=== PATIENT | female | born 1995 | race Caucasian/White ===

== ENCOUNTER 2025-03-23 14:01 | Emergency (ER) | payer OTHER ==
[~2025-03-23] VITALS: Ht 160 cm; Wt 100.2 kg
[2025-03-23] MEDS ORDERED: ACETAMINOPHEN ES 500 MG TABLET ONE (14:57)
[2025-03-23] MEDS ORDERED: KETOROLAC TROMETHAMINE 15 MG/ML VIAL ONE (14:57)
[2025-03-23] MEDS: ACETAMINOPHEN ES 500 MG TABLET PO ONE (15:04)
[2025-03-23] MEDS: KETOROLAC TROMETHAMINE 15 MG/ML VIAL IM ONE (15:04)
[2025-03-23 15:34] LABS: PLATELET COUNT (AUTO) 364 K/uL (150-450); RED BLOOD CELL COUNT(AUTO) 4.59 MIL/uL (4.0-5.2); RED CELL DISTRIBUTION WIDTH 12.3 % (11.5-15.0); WHITE BLOOD COUNT (AUTO) 13.1 K/uL (4.3-11.0)
[2025-03-23 15:43] LABS: CALCIUM, SERUM 9.3 mg/dL (8.5-10.1); CREATININE 0.5 mg/dL (0.6-1.3); SODIUM SERUM 136.0 mmol/L (136-145); UREA NITROGEN, BLOOD 10.0 mg/dL (7-18)
[2025-03-23 15:45] LABS: APPEARANCE,URINE CLEAR (CLEAR); BLOOD, URINE NEGATIVE Ery/uL (NEGATIVE); LEUKOCYTE ESTERASE ,URINE TRACE (NEGATIVE); NITRITE, URINE NEGATIVE (NEGATIVE); UGLUCOSE NEGATIVE (NEGATIVE)
[2025-03-23 16:02] LABS: PREGNANCY TEST URINE QUAL NEGATIVE (NEGATIVE)
[2025-03-23 16:17] LABS: ADD URINE CULTURE YES
[2025-03-23 16:18] LABS: SQUAMOUS EPITHELIAL CELL,UR 21-50 /HPF (None Seen)
[2025-03-23] MEDS ORDERED: CEPH-570 PO (16:44)
[2025-03-23 16:51] VITALS: BP 144/80; TEMP 98.5; O2SAT 100
== END 2025-03-23 16:53 | disposition home or self-care (01) ==
LOC: ER 14:01
DX: N39.0 Urinary tract infection, site not specified (principal); G89.29 Other chronic pain; M54.9 Dorsalgia, unspecified; Z60.2 Problems related to living alone
CPT/HCPCS: 99283; 96372; 85025; 80048; 81001; 36415; 84703 ×2; J1885; 87086-TC

== ENCOUNTER 2025-06-06 23:21 | Emergency (ER) | payer OTHER ==
[~2025-06-06] VITALS: Ht 162.6 cm; Wt 83.9 kg
[~2025-06-06 23:21] MED LIST: CEPH-570 PO
[2025-06-07] MEDS ORDERED: KETOROLAC TROMETHAMINE INJ 30 MG/ML VIAL ONE (02:07)
[2025-06-07 02:16] LABS: PREGNANCY TEST URINE QUAL NEGATIVE (NEGATIVE)
[2025-06-07] MEDS ORDERED: LIDOCAINE 5% (PATCH) 1 EA PATCH TP ONE (02:21)
[2025-06-07] MEDS ORDERED: ACETAMINOPHEN 325 MG TABLET ONE (02:21)
[2025-06-07] MEDS ORDERED: dexaMETHasone SOD PHOSPHATE 1 ML ONE (02:26)
[2025-06-07] MEDS: dexaMETHasone SOD PHOSPHATE 4 MG/ML VIAL IM ONE (02:43)
[2025-06-07] MEDS: LIDOCAINE 5% (PATCH) 1 EA PATCH TP ONE (02:43)
[2025-06-07] MEDS: KETOROLAC TROMETHAMINE INJ 30 MG/ML VIAL IM ONE (02:43)
[2025-06-07] MEDS: ACETAMINOPHEN 325 MG TABLET PO ONE (02:43)
[2025-06-07] MEDS ORDERED: METHOCARBAMOL (500MG) 500 MG TABLET ONE (03:25)
[2025-06-07] MEDS: METHOCARBAMOL (750MG) 750 MG TABLET PO ONE (03:29)
[2025-06-07 04:01] VITALS: BP 126/77; TEMP 98; O2SAT 98
== END 2025-06-07 04:01 | disposition home or self-care (01) ==
LOC: ER 23:24
DX: M54.50 Low back pain, unspecified (principal); G89.29 Other chronic pain; M79.605 Pain in left leg; M25.562 Pain in left knee; Z87.39 Personal history of other diseases of the musculoskeletal system and connective tissue; Z60.2 Problems related to living alone
CPT/HCPCS: 81025; 84703; 96372; 99284; J1100; J1885

== ENCOUNTER 2025-06-08 20:28 | Emergency (ER) | payer MEDICAID, OTHER ==
[~2025-06-08] VITALS: Ht 160 cm; Wt 98.4 kg
[2025-06-08 20:51] VITALS: BP 145/79; TEMP 98.3
[2025-06-08] MEDS ORDERED: KETOROLAC TROMETHAMINE INJ 30 MG/ML VIAL ONE (21:22)
[2025-06-08] MEDS: KETOROLAC TROMETHAMINE INJ 30 MG/ML VIAL IM ONE (21:23)
[2025-06-08 21:39] VITALS: O2SAT 99
== END 2025-06-08 21:39 | disposition home or self-care (01) ==
LOC: ER 20:31
DX: G89.29 Other chronic pain (principal); M54.50 Low back pain, unspecified; Z60.2 Problems related to living alone
CPT/HCPCS: 99283; 96372; J1885

== ENCOUNTER 2025-06-13 20:02 | Emergency (ER) | payer OTHER ==
[~2025-06-13] VITALS: Ht 160 cm; Wt 98.4 kg
[2025-06-13 20:41] VITALS: BP 134/88; TEMP 98; O2SAT 98
[2025-06-13] MEDS: KETOROLAC TROMETHAMINE 15 MG/ML VIAL IM ONE (21:00)
[2025-06-13] MEDS ORDERED: LIDO30AD10 TP (22:02)
[2025-06-13] MEDS ORDERED: KETOROLAC TROMETHAMINE 15 MG/ML VIAL ONE (22:03)
[2025-06-13 22:13] LABS: APPEARANCE,URINE CLEAR (CLEAR); BLOOD, URINE 3+ Ery/uL (NEGATIVE); LEUKOCYTE ESTERASE ,URINE NEGATIVE (NEGATIVE); NITRITE, URINE NEGATIVE (NEGATIVE); UGLUCOSE NEGATIVE (NEGATIVE)
[2025-06-13 22:27] LABS: ADD URINE CULTURE YES
== END 2025-06-13 22:11 | disposition home or self-care (01) ==
LOC: ER 20:07
DX: M54.50 Low back pain, unspecified (principal); G89.29 Other chronic pain; Z79.899 Other long term (current) drug therapy
CPT/HCPCS: 99283; 96372; 87086; 81001; J1885

== ENCOUNTER 2025-06-16 21:04 | Emergency (ER) | payer OTHER ==
[~2025-06-16] VITALS: Ht 165.1 cm; Wt 76.7 kg
[~2025-06-16 21:04] MED LIST changes: +LIDO30AD10 TP
[2025-06-16] MEDS ORDERED: KETO10TA2 PO (23:02)
[2025-06-16] MEDS ORDERED: KETOROLAC TROMETHAMINE INJ 30 MG/ML VIAL ONE (23:29)
[2025-06-16] MEDS: KETOROLAC TROMETHAMINE INJ 30 MG/ML VIAL IM ONE (23:38)
[2025-06-16 23:42] VITALS: BP 149/89; TEMP 98.3; O2SAT 97
== END 2025-06-16 23:43 | disposition home or self-care (01) ==
LOC: ER 21:05
DX: G89.29 Other chronic pain (principal); M54.9 Dorsalgia, unspecified; Z60.2 Problems related to living alone; Z87.39 Personal history of other diseases of the musculoskeletal system and connective tissue
CPT/HCPCS: 99283; 96372; J1885